=== PATIENT | male | born 1950 | race Asian ===

== ENCOUNTER 2018-04-13 07:23 | Day surgery (SDC) | payer BC ==
[2018-04-13] MEDS ORDERED: PROPOFOL 500 MG/50 ML EMU IV ONE (08:07)
[2018-04-13] MEDS ORDERED: LIDOCAINE HCL 1% MPF 30 SOL ONE (08:07)
[2018-04-13 10:21] VITALS: BP 129/85; PULSE 58; RESP 20; TEMP 97.4; O2SAT 97
== END 2018-04-13 10:45 | disposition home or self-care (01) ==
LOC: SURG 07:23
PROVIDERS: ATTEND Surgery
DX: Z12.11 Encounter for screening for malignant neoplasm of colon (principal); Q39.9 Congenital malformation of esophagus, unspecified; K57.30 Diverticulosis of large intestine without perforation or abscess without bleeding; D12.3 Benign neoplasm of transverse colon; E11.9 Type 2 diabetes mellitus without complications
CPT/HCPCS: 82962; 99001; J2001; J2704